=== PATIENT | female | born 1980 | race Caucasian/White ===

== ENCOUNTER 2018-08-07 16:32 | Emergency (ER) | payer OTHER ==
[~2018-08-07] VITALS: Ht 160 cm; Wt 76.2 kg
[2018-08-07] MEDS ORDERED: SODIUM CHLORIDE FLUSH 10ML SYR IVF ONE (17:00)
[2018-08-07 17:18] LABS: BASOPHILS # (AUTO) 0.16 x10^3/uL (0-0.1); BASOPHILS % (AUTO) 1 % (0-1); EOSINOPHILS # (AUTO) 0.21 x10^3/uL (0-0.4); EOSINOPHILS % (AUTO) 2 % (1-7); LYMPHOCYTES # (AUTO) 2.18 x10^3/uL (1-3.4); LYMPHOCYTES % (AUTO) 16 % (22-44); MD NO; MEAN CORPUSCULAR HEMOGLOBIN 31.3 pg (27.0-34.8); MEAN CORPUSCULAR HGB CONC 33.4 g/dL (32.4-35.8); MEAN CORPUSCULAR VOLUME 93.8 fL (80-100); MEAN PLATELET VOLUME 9.6 fL (7.4-10.4); MONOCYTES # (AUTO) 1.17 x10^3/uL (0.2-0.8); MONOCYTES % (AUTO) 8 % (2-9); NEUTROPHILS % (AUTO) 73 % (42-75); PLATELET COUNT 241 x10^3/uL (130-400)
[2018-08-07 17:30] LABS: ANION GAP 9 mmol/L (5-15); CALCIUM 9.3 mg/dL (8.5-10.1); CHLORIDE 105 mmol/L (98-107); CREATININE 0.73 mg/dL (0.55-1.02)
[2018-08-07] MEDS ORDERED: OMNIPAQUE 350 MG/ML, 100ML BOTTLE ONE (18:00)
--- NOTE | 2018-08-07 18:59 | NUR ---
REPORT RECIEVED FROM DANILO MCGOWAN.
[2018-08-07] MEDS ORDERED: LIDOCAINE-MPF 1%, 5ML INFIL ONE (19:00)
[2018-08-07] MEDS ORDERED: LIDOCAINE-MPF 1%, 5ML ONE (19:06)
--- NOTE | 2018-08-07 19:49 | NUR ---
I & D COMPLETED. PT GIVEN PAD.
[2018-08-07 19:58] LABS: CLUE CELLS PRESENT (NONE SEEN); WET PREP WBCS FEW (FEW)
[2018-08-07 20:33] VITALS: BP 126/74
--- NOTE | 2018-08-07 20:33 | NUR ---
Patient/Caregiver given discharge instructions and they have confirmed that they understand the instructions. Patient ambulatory with steady gait.
== END 2018-08-07 20:35 | disposition home or self-care (01) ==
LOC: ED 17:21
DX: N76.0 Acute vaginitis (principal); N76.4 Abscess of vulva; E11.9 Type 2 diabetes mellitus without complications
CPT/HCPCS: 36415; 56405; 72193; 80048; 82040; 84703; 85025; 87210; 87491; 87591; 87808; 99284; Q9967

== ENCOUNTER 2018-08-09 06:24 | Emergency (ER) | payer OTHER ==
[~2018-08-09] VITALS: Ht 160 cm; Wt 74.5 kg
[2018-08-09 06:26] VITALS: BP 113/80
--- NOTE | 2018-08-09 07:02 | NUR ---
REPORT OF PT TO ROSLYN HARRELL. ALL QUESTIONS ANSWERED.
--- NOTE | 2018-08-09 08:09 | NUR ---
Patient/Caregiver given discharge instructions and they have confirmed that they understand the instructions. Patient ambulatory with steady gait. Pt left with all personal belongings.
== END 2018-08-09 08:11 | disposition home or self-care (01) ==
LOC: ED 07:20
DX: N76.4 Abscess of vulva (principal); E11.65 Type 2 diabetes mellitus with hyperglycemia; Z88.5 Allergy status to narcotic agent
CPT/HCPCS: 82962; 99284